=== PATIENT | female | born 1980 | race Hispanic/Latino ===

== ENCOUNTER 2021-03-10 21:26 | Inpatient (IN) | payer OTHER ==
[~2021-03-10] VITALS: Ht 154.9 cm; Wt 105.9 kg
[2021-03-10 21:28] VITALS: BP 113/60
[2021-03-10 21:59] LABS: BASOPHILS % (AUTO) 0.4 % (0.0-5.0); EOSINOPHILS % (AUTO) 0.2 % (0.0-8.0); HEMATOCRIT 42.9 % (36-48); LYMPHOCYTES % (AUTO) 24.5 % (21.0-51.0); MEAN CORPUSCULAR HEMOGLOBIN 25.9 pg (27.0-33.0); MEAN CORPUSCULAR HGB CONC 32.2 g/dL (32.0-36.0); MEAN CORPUSCULAR VOLUME 80.5 fL (79-99); MONOCYTES % (AUTO) 4.2 % (3.0-13.0); NEUTROPHILS % (AUTO) 70.3 % (40.0-77.0); PLATELET COUNT (AUTO) 347 K/uL (130-400); RED BLOOD CELL COUNT(AUTO) 5.33 MIL/uL (4.00-5.50); WHITE BLOOD COUNT (AUTO) 11.9 K/uL (4.8-10.8)
[2021-03-10] MEDS ORDERED: ACETAMINOPHEN 500 MG TABLET PO ONE (22:00)
[2021-03-10] MEDS ORDERED: DEXAMETHASONE SOD PHOSPHATE 4 MG/ML 1ML VIAL IVP STA (22:04)
[2021-03-10 22:14] LABS: ABG BASE EXCESS -3.2 mmol/L (-2.0-3.0); ABG HCO3 20.2 mmol/L (21.0-28.0); ABG OXYGEN SATURATION 90.6 % (95.0-99.0); ABG PCO2 32 mmHg (32-45)
[2021-03-10 22:17] LABS: CREATININE 0.9 mg/dL (0.5-1.5); POTASSIUM 3.5 mmol/L (3.5-5.1)
[2021-03-10] MEDS ORDERED: PROPOFOL 1000 MG/100 ML 100 ML IV ONE (22:19)
[2021-03-10 22:21] LABS: ALBUMIN 2.7 g/dL (3.5-5.0); BILIRUBIN,TOTAL 0.8 mg/dL (0.2-1.0)
[2021-03-10] MEDS ORDERED: ONDANSETRON 4MG INJ ONE (22:22)
[2021-03-10] MEDS ORDERED: 0.9% NACL 250ML IVPB ONE (22:30)
[2021-03-10] MEDS ORDERED: ALBUTEROL INHALER 90MCG/INH IH ONE (22:30)
[2021-03-10] MEDS ORDERED: CEFTRIAXONE 1G VIAL IVP ONE (22:30)
[2021-03-10] MEDS ORDERED: MAGNESIUM 2GM PREMIX 50ML 50 ML IV SCH (22:30)
[2021-03-10] MEDS ORDERED: AZITHROMYCIN 500MG+NS 250ML 250 ML IV ONE (22:30)
[2021-03-10] MEDS ORDERED: LACTATED RINGERS 1000ML 1,000 ML IV ONE ×2 (22:30)
[2021-03-10] MEDS ORDERED: AZITHROMYCIN 500MG VIAL IVPB ONE (22:30)
[2021-03-10] MEDS ORDERED: ENOXAPARIN SODIUM 120 MG/0.8ML SQ ONE (22:32)
[2021-03-10 22:44] LABS: INR 1.02 (0.85-1.15); PROTHROMBIN TIME 11.1 SEC (9.6-11.6)
[2021-03-10 22:46] LABS: PARTIAL THROMBOPLASTIN TIME 30.1 SEC (26.3-35.5)
[2021-03-10 22:47] LABS: MAGNESIUM 1.9 mg/dL (1.80-2.40)
[2021-03-10 23:00] VITALS: BP 200/100
[2021-03-10 23:01] LABS: CRP QUANTITATIVE 205.8 mg/L (0.00-9.0)
[2021-03-10 23:10] VITALS: BP 182/60
[2021-03-10 23:20] VITALS: BP 139/85
[2021-03-10 23:22] LABS: ABG BASE EXCESS -5.5 mmol/L (-2.0-3.0); ABG HCO3 21.9 mmol/L (21.0-28.0); ABG PCO2 50 mmHg (32-45)
[2021-03-10] MEDS ORDERED: NITROGLYCERIN 0.4 MG SL TAB SL PRN (23:30)
[2021-03-10] MEDS ORDERED: 0.9% NACL 250ML IVPB SCH (23:30)
[2021-03-10] MEDS ORDERED: PHARMACY COMMUNICATION MISC SCH (23:30)
[2021-03-10] MEDS ORDERED: ONDANSETRON 4MG INJ IV PRN (23:30)
[2021-03-10] MEDS ORDERED: AZITHROMYCIN 500MG VIAL IVPB SCH (23:30)
[2021-03-10] MEDS ORDERED: ACETAMINOPHEN 325 MG SUPPOSITORY RC PRN ×2 (23:30)
[2021-03-10 23:32] VITALS: BP 128/73
[2021-03-10 23:58] LABS: ABG BASE EXCESS -6.1 mmol/L (-2.0-3.0); ABG HCO3 20.2 mmol/L (21.0-28.0); ABG PCO2 43 mmHg (32-45)
[2021-03-11] VITALS (24 sets, daily range): BP systolic 88–131; BP diastolic 50–90
[2021-03-11] MEDS ORDERED: ALBUTEROL INHALER 90MCG/INH IH PRN
[2021-03-11] MEDS ORDERED: FENTANYL 2500MCG+NS 250ML 250 ML IV ONE (00:38)
[2021-03-11] MEDS ORDERED: PROPOFOL 1000 MG/100 ML 100 ML IV ONE (00:45)
[2021-03-11] MEDS ORDERED: SODIUM BICARB 8.4% 50ML SYRINGE IVP SCH ×2 (01:00)
[2021-03-11] MEDS ORDERED: MIDAZOLAM 100MG-0.9% NS 100ML 100ML BAG IV ONE (01:00)
[2021-03-11] MEDS ORDERED: FENTANYL CITRATE PF 0.05 MG/ML 1,000 MCG in 0.9%NACL 100ML 250 ML IVPB SCH (01:00)
[2021-03-11] MEDS ORDERED: PROPOFOL 1000 MG/100 ML 100 ML IV SCH (01:00)
[2021-03-11] MEDS: SOLU-MEDROL 40MG VIAL IVP SCH ×3 (01:00→23:46)
[2021-03-11] MEDS ORDERED: FENTANYL 1000MCG+NS 100ML 100 ML IV SCH (01:30)
[2021-03-11] MEDS ORDERED: DEXAMETHASONE SOD PHOSPHATE 4 MG/ML 1ML VIAL ONE (01:36)
[2021-03-11] MEDS ORDERED: AZITHROMYCIN 500MG+NS 250ML 250 ML IV ONE (01:37)
[2021-03-11] MEDS ORDERED: CEFTRIAXONE 1G VIAL ONE (01:37)
[2021-03-11] MEDS ORDERED: SODIUM BICARB 50MEQ 50ML VIAL 100 ML ONE (01:39)
[2021-03-11] MEDS ORDERED: SODIUM BICARB 50MEQ 50ML VIAL 50 ML ONE (01:39)
[2021-03-11] MEDS ORDERED: NOREPINEPHRINE 4MG/NS 250ML 250 ML IV ONE (02:32)
[2021-03-11] MEDS ORDERED: NOREPINEPHRINE 4MG/NS 250ML 250 ML IV SCH (03:00)
[2021-03-11 06:59] LABS: ABG BASE EXCESS -0.9 mmol/L (-2.0-3.0); ABG HCO3 21.9 mmol/L (21.0-28.0); ABG OXYGEN SATURATION 97.1 % (95.0-99.0); ABG PCO2 32 mmHg (32-45)
[2021-03-11] MEDS ORDERED: CISATRACURIUM BESYLATE 2 MG/ML 10ML VIAL IV SCH (07:00)
[2021-03-11 07:11] LABS: BASOPHILS % (AUTO) 0.3 % (0.0-5.0); EOSINOPHILS % (AUTO) 0.4 % (0.0-8.0); LYMPHOCYTES % (AUTO) 12.9 % (21.0-51.0); MEAN CORPUSCULAR HEMOGLOBIN 25.7 pg (27.0-33.0); MEAN CORPUSCULAR HGB CONC 31.4 g/dL (32.0-36.0); MEAN CORPUSCULAR VOLUME 81.9 fL (79-99); NEUTROPHILS % (AUTO) 83.7 % (40.0-77.0); PLATELET COUNT (AUTO) 385 K/uL (130-400); RED BLOOD CELL COUNT(AUTO) 5.37 MIL/uL (4.00-5.50); RED CELL DISTRIBUTION WIDTH 17.1 % (11.0-15.5); WHITE BLOOD COUNT (AUTO) 13.6 K/uL (4.8-10.8)
[2021-03-11 07:23] LABS: HEMOGLOBIN A1C 6.4 % (4.0-6.0)
[2021-03-11 07:42] LABS: ALBUMIN 2.6 g/dL (3.5-5.0); BILIRUBIN,TOTAL 1.5 mg/dL (0.2-1.0); CREATININE 0.8 mg/dL (0.5-1.5); POTASSIUM 3.7 mmol/L (3.5-5.1); TOTAL PROTEIN, SERUM 8.2 g/dL (6.0-8.3)
[2021-03-11 08:01] LABS: CRP QUANTITATIVE 267.6 mg/L (0.00-9.0)
[2021-03-11] MEDS: CEFTRIAXONE 1G VIAL IV SCH (08:53)
[2021-03-11] MEDS: ENOXAPARIN SODIUM 40 MG/0.4 ML SYRINGE SQ SCH ×2 (08:53→20:41)
[2021-03-11] MEDS: PANTOPRAZOLE 40 MG/VIAL IVP SCH (08:54)
[2021-03-11] MEDS ORDERED: DEXAMETHASONE SOD PHOSPHATE 4 MG/ML 1ML VIAL IVP SCH (09:00)
[2021-03-11] MEDS ORDERED: FAMOTIDINE 20MG VIAL IV SCH (09:00)
[2021-03-11] MEDS ORDERED: ENOXAPARIN SODIUM 40 MG/0.4 ML SYRINGE SQ SCH (09:00)
[2021-03-11] MEDS ORDERED: PHARMACY COMMUNICATION MISC SCH (10:00)
[2021-03-11] MEDS ORDERED: VANCOMYCIN 2GM/500ML NS IV ONE ×2 (11:00)
[2021-03-11] MEDS ORDERED: VANCOMYCIN PROTOCOL PER PHARMACY IV PRN (11:00)
[2021-03-11] MEDS ORDERED: VANCOMYCIN KIT 250 ML IV ONE (11:25)
[2021-03-11] MEDS: MEROPENEM 1 GM VIAL IVP SCH ×2 (11:38→18:51)
[2021-03-11 11:41] LABS: TROPONIN I 1.39 ng/mL (0.00-0.06)
[2021-03-11] MEDS ORDERED: TOCILIZUMAB 400MG VIAL 800 MG in 0.9%NACL 100ML 100 ML IV ONE (12:00)
[2021-03-11] MEDS ORDERED: PHARMACY COMMUNICATION MISC STA (14:13)
[2021-03-11] MEDS ORDERED: ROCURONIUM BROMIDE 10MG/1ML 5ML VL ONE (14:14)
[2021-03-11] MEDS ORDERED: ROCURONIUM BROMIDE 10MG/1ML 5ML VL IV ONE (14:30)
[2021-03-11] MEDS: CISATRACURIUM BESYLATE 100 MG in 0.9%NACL 100ML 100 ML IV SCH (14:46)
[2021-03-11] MEDS ORDERED: COMPOUND IV REFRIGERATED 1 EACH IVSOLN MISC PRN (15:00)
[2021-03-11] MEDS ORDERED: REMDESIVIR (EUA) 520 200 MG in 0.9% NACL 250ML 250 ML IV ONE (15:00)
[2021-03-11] MEDS: SUCRALFATE 1 GM TABLET NG SCH ×2 (16:01→20:41)
[2021-03-11] MEDS: LACTATED RINGERS 1000ML 1,000 ML IV SCH (17:12)
[2021-03-11 18:14] LABS: BILIRUBIN,URINE Small (NEGATIVE); COLOR,URINE Dark Yellow (YELLOW); GLUCOSE, URINE (UA) Negative (NEGATIVE); KETONES,URINE 40 mg/dL (NEGATIVE); LEUKOCYTE ESTERASE ,URINE Negative (NEGATIVE); NITRATE,URINE Negative (NEGATIVE); OCCULT BLOOD,URINE Negative (NEGATIVE); PH,URINE 5.5 (5.0-8.0); PROTEIN,URINE POS 2+ mg/dL (NEGATIVE)
[2021-03-11 18:18] LABS: APPEARANCE,URINE SLIGHTLY CLOUDY (CLEAR)
[2021-03-11 18:19] LABS: AMPHET/METH SCREEN,URINE NEGATIVE (NEGATIVE); BARBITURATE SCREEN, URINE NEGATIVE (NEGATIVE); BENZODIAZEPINES SCREEN,URINE POSITIVE (NEGATIVE); CANNABINOID SCREEN,URINE NEGATIVE (NEGATIVE); COCAINE SCREEN,URINE NEGATIVE (NEGATIVE); OPIATE SCREEN,URINE NEGATIVE (NEGATIVE); PHENCYCLIDINE SCREEN,URINE NEGATIVE (NEGATIVE)
[2021-03-11 18:26] LABS: WBC,URINE 0-1 /HPF (0-1)
[2021-03-11 18:27] LABS: BACTERIA,URINE Few /HPF (None Seen)
[2021-03-11 18:28] LABS: AMORPHOUS SEDIMENT,UR Few /LPF (None Seen); MUCUS,URINE Few LPF (None Seen); SQUAMOUS EPITHELIAL CELL,UR Few /HPF (0-2)
[2021-03-11 18:29] LABS: HYALINE CASTS, URINE 0-1 /LPF (0-1 /LPF)
[2021-03-11] MEDS ORDERED: 0.9%NACL 50ML 50 ML IV ONE (18:41)
[2021-03-11] MEDS: VANCOMYCIN KIT 1 GM/250 ML IV.KIT IV SCH (20:41)
[2021-03-11] MEDS ORDERED: 0.9% NACL 250ML 250 ML IV SCH ×2 (21:00)
[2021-03-11 23:22] LABS: ABG BASE EXCESS -2.7 mmol/L (-2.0-3.0); ABG HCO3 22.7 mmol/L (21.0-28.0); ABG OXYGEN SATURATION 86.8 % (95.0-99.0); ABG PCO2 42 mmHg (32-45)
[2021-03-11] MEDS: ARTIFICAL TEARS SOL 15 ML OU SCH (23:46)
[2021-03-11] MEDS: AZITHROMYCIN 500MG+NS 250ML IV SCH (23:46)
[2021-03-12] VITALS (65 sets, daily range): BP systolic 97–247; BP diastolic 60–245
[2021-03-12] MEDS ORDERED: CISATRACURIUM BESYLATE 10 MG/ML 20ML VIAL IV ONE (00:26)
[2021-03-12] MEDS: FENTANYL 2500MCG+NS 250ML 250 ML IV SCH ×2 (00:28→16:17)
[2021-03-12] MEDS: CISATRACURIUM BESYLATE 100 MG in 0.9%NACL 100ML 100 ML IV SCH ×5 (00:29→19:49)
[2021-03-12] MEDS: MIDAZOLAM 100MG-0.9% NS 100ML 100ML BAG IV PRN ×2 (00:29→16:16)
[2021-03-12] MEDS ORDERED: 0.9%NACL 100ML 100 ML ONE (03:31)
[2021-03-12] MEDS: SUCRALFATE 1 GM TABLET NG SCH ×4 (03:35→19:48)
[2021-03-12] MEDS: MEROPENEM 1 GM VIAL IVP SCH ×3 (03:35→17:53)
[2021-03-12] MEDS: ARTIFICAL TEARS SOL 15 ML OU SCH ×5 (03:43→19:45)
[2021-03-12 04:41] LABS: BASOPHILS % (AUTO) 0.3 % (0.0-5.0); HEMATOCRIT 35.9 % (36-48); LYMPHOCYTES % (AUTO) 21.9 % (21.0-51.0); MEAN CORPUSCULAR HEMOGLOBIN 25.5 pg (27.0-33.0); MEAN CORPUSCULAR HGB CONC 31.2 g/dL (32.0-36.0); MEAN CORPUSCULAR VOLUME 81.8 fL (79-99); MONOCYTES % (AUTO) 6.1 % (3.0-13.0); NEUTROPHILS % (AUTO) 70.8 % (40.0-77.0); PLATELET COUNT (AUTO) 340 K/uL (130-400); RED BLOOD CELL COUNT(AUTO) 4.39 MIL/uL (4.00-5.50); RED CELL DISTRIBUTION WIDTH 16.9 % (11.0-15.5); WHITE BLOOD COUNT (AUTO) 7.8 K/uL (4.8-10.8)
[2021-03-12 05:01] LABS: ALBUMIN 2.1 g/dL (3.5-5.0); BILIRUBIN,TOTAL 1.1 mg/dL (0.2-1.0); CREATININE 0.6 mg/dL (0.5-1.5); POTASSIUM 3.9 mmol/L (3.5-5.1); TOTAL PROTEIN, SERUM 6.7 g/dL (6.0-8.3)
[2021-03-12 05:27] LABS: CRP QUANTITATIVE 178.1 mg/L (0.00-9.0)
[2021-03-12] MEDS: LACTATED RINGERS 1000ML 1,000 ML IV SCH ×2 (05:44→17:53)
[2021-03-12] MEDS: REMDESIVIR LABS MISC SCH (06:20)
[2021-03-12 06:32] LABS: ABG BASE EXCESS -1.5 mmol/L (-2.0-3.0); ABG HCO3 24.6 mmol/L (21.0-28.0); ABG OXYGEN SATURATION 92.2 % (95.0-99.0); ABG PCO2 47 mmHg (32-45)
[2021-03-12] MEDS ORDERED: 0.9% NACL 250ML 250 ML ONE ×2 (08:09→19:41)
[2021-03-12] MEDS: PANTOPRAZOLE 40 MG/VIAL IVP SCH (08:13)
[2021-03-12] MEDS: CEFTRIAXONE 1G VIAL IV SCH (08:14)
[2021-03-12] MEDS: VANCOMYCIN KIT 1 GM/250 ML IV.KIT IV SCH ×2 (08:14→19:45)
[2021-03-12] MEDS: ENOXAPARIN SODIUM 40 MG/0.4 ML SYRINGE SQ SCH ×2 (08:15→19:47)
[2021-03-12 08:28] LABS: ALBUMIN 2.2 g/dL (3.5-5.0); BILIRUBIN,DIRECT 0.7 mg/dL (0.0-0.3); BILIRUBIN,TOTAL 1.1 mg/dL (0.2-1.0); TOTAL PROTEIN, SERUM 6.2 g/dL (6.0-8.3)
[2021-03-12] MEDS: SOLU-MEDROL 40MG VIAL IVP SCH (13:11)
[2021-03-12] MEDS: REMDESIVIR (EUA) 520 100 MG in 0.9% NACL 250ML 250 ML IV SCH (16:15)
[2021-03-12] MEDS: CHLORHEXIDINE GLUCONATE 473 ML MOUTHWASH MM SCH (19:46)
[2021-03-13] VITALS (55 sets, daily range): BP systolic 98–291; BP diastolic 56–286
[2021-03-13] MEDS: AZITHROMYCIN 500MG+NS 250ML IV SCH ×2 (00:14→23:42)
[2021-03-13] MEDS: SOLU-MEDROL 40MG VIAL IVP SCH ×3 (00:16→23:49)
[2021-03-13] MEDS: ARTIFICAL TEARS SOL 15 ML OU SCH ×7 (00:17→23:52)
[2021-03-13] MEDS: CISATRACURIUM BESYLATE 100 MG in 0.9%NACL 100ML 100 ML IV SCH ×5 (02:16→22:43)
[2021-03-13] MEDS: SUCRALFATE 1 GM TABLET NG SCH ×4 (02:21→21:20)
[2021-03-13] MEDS: MEROPENEM 1 GM VIAL IVP SCH ×2 (02:21→10:49)
[2021-03-13 05:38] LABS: BASOPHILS % (AUTO) 0.1 % (0.0-5.0); HEMATOCRIT 35.5 % (36-48); LYMPHOCYTES % (AUTO) 17.3 % (21.0-51.0); MEAN CORPUSCULAR HEMOGLOBIN 25.3 pg (27.0-33.0); MEAN CORPUSCULAR HGB CONC 30.4 g/dL (32.0-36.0); MEAN CORPUSCULAR VOLUME 83.1 fL (79-99); MONOCYTES % (AUTO) 4.4 % (3.0-13.0); NEUTROPHILS % (AUTO) 77.3 % (40.0-77.0); PLATELET COUNT (AUTO) 449 K/uL (130-400); RED BLOOD CELL COUNT(AUTO) 4.27 MIL/uL (4.00-5.50); RED CELL DISTRIBUTION WIDTH 17.3 % (11.0-15.5); WHITE BLOOD COUNT (AUTO) 7.7 K/uL (4.8-10.8)
[2021-03-13 06:02] LABS: ALBUMIN 1.9 g/dL (3.5-5.0); CREATININE 0.5 mg/dL (0.5-1.5); CRP QUANTITATIVE 60.5 mg/L (0.00-9.0); MAGNESIUM 2.1 mg/dL (1.80-2.40); PHOSPHORUS 2.2 mg/dL (2.5-4.9); POTASSIUM 4.2 mmol/L (3.5-5.1); TOTAL PROTEIN, SERUM 6.2 g/dL (6.0-8.3)
[2021-03-13] MEDS: REMDESIVIR LABS MISC SCH (06:23)
[2021-03-13] MEDS: FENTANYL 2500MCG+NS 250ML 250 ML IV SCH ×2 (06:27→20:48)
[2021-03-13 07:25] LABS: ABG BASE EXCESS 3.9 mmol/L (-2.0-3.0); ABG HCO3 28.3 mmol/L (21.0-28.0); ABG OXYGEN SATURATION 98.5 % (95.0-99.0); ABG PCO2 42 mmHg (32-45)
[2021-03-13] MEDS ORDERED: 0.9% NACL 250ML 250 ML ONE ×2 (08:31→23:24)
[2021-03-13] MEDS: PANTOPRAZOLE 40 MG/VIAL IVP SCH (08:32)
[2021-03-13] MEDS: VANCOMYCIN KIT 1 GM/250 ML IV.KIT IV SCH ×2 (08:32→20:45)
[2021-03-13] MEDS: CEFTRIAXONE 1G VIAL IV SCH (08:32)
[2021-03-13] MEDS: ENOXAPARIN SODIUM 40 MG/0.4 ML SYRINGE SQ SCH ×2 (08:33→20:44)
[2021-03-13] MEDS: CHLORHEXIDINE GLUCONATE 473 ML MOUTHWASH MM SCH ×2 (09:59→21:20)
[2021-03-13] MEDS: REMDESIVIR (EUA) 520 100 MG in 0.9% NACL 250ML 250 ML IV SCH (15:23)
[2021-03-13] MEDS: MIDAZOLAM 100MG-0.9% NS 100ML 100ML BAG IV PRN (17:59)
[2021-03-14] VITALS (63 sets, daily range): BP systolic 109–151; BP diastolic 59–104
[2021-03-14] MEDS: CISATRACURIUM BESYLATE 100 MG in 0.9%NACL 100ML 100 ML IV SCH ×4 (03:12→22:48)
[2021-03-14] MEDS: SUCRALFATE 1 GM TABLET NG SCH ×4 (03:15→20:52)
[2021-03-14] MEDS: ARTIFICAL TEARS SOL 15 ML OU SCH ×5 (03:16→20:51)
[2021-03-14 04:16] LABS: ABG BASE EXCESS 3.1 mmol/L (-2.0-3.0); ABG HCO3 28.5 mmol/L (21.0-28.0); ABG OXYGEN SATURATION 97.9 % (95.0-99.0); ABG PCO2 46 mmHg (32-45)
[2021-03-14 04:38] LABS: BASOPHILS % (AUTO) 0.3 % (0.0-5.0); HEMATOCRIT 35.5 % (36-48); LYMPHOCYTES % (AUTO) 21.3 % (21.0-51.0); MEAN CORPUSCULAR HEMOGLOBIN 25.7 pg (27.0-33.0); MEAN CORPUSCULAR HGB CONC 30.4 g/dL (32.0-36.0); MEAN CORPUSCULAR VOLUME 84.3 fL (79-99); MONOCYTES % (AUTO) 6.1 % (3.0-13.0); NEUTROPHILS % (AUTO) 70.3 % (40.0-77.0); PLATELET COUNT (AUTO) 415 K/uL (130-400); RED BLOOD CELL COUNT(AUTO) 4.21 MIL/uL (4.00-5.50); RED CELL DISTRIBUTION WIDTH 17.2 % (11.0-15.5); WHITE BLOOD COUNT (AUTO) 6.9 K/uL (4.8-10.8)
[2021-03-14 04:51] LABS: BILIRUBIN,TOTAL 0.9 mg/dL (0.2-1.0); CREATININE 0.5 mg/dL (0.5-1.5); CRP QUANTITATIVE 27.2 mg/L (0.00-9.0); POTASSIUM 4.2 mmol/L (3.5-5.1)
[2021-03-14] MEDS: MIDAZOLAM 100MG-0.9% NS 100ML 100ML BAG IV PRN (06:05)
[2021-03-14] MEDS: CEFTRIAXONE 1G VIAL IV SCH (09:18)
[2021-03-14] MEDS: ENOXAPARIN SODIUM 40 MG/0.4 ML SYRINGE SQ SCH ×2 (09:18→20:52)
[2021-03-14] MEDS: PANTOPRAZOLE 40 MG/VIAL IVP SCH (09:18)
[2021-03-14] MEDS: VANCOMYCIN KIT 1 GM/250 ML IV.KIT IV SCH (09:18)
[2021-03-14] MEDS: CHLORHEXIDINE GLUCONATE 473 ML MOUTHWASH MM SCH ×2 (09:19→20:52)
[2021-03-14] MEDS: FENTANYL 2500MCG+NS 250ML 250 ML IV SCH ×2 (09:27→21:42)
[2021-03-14] MEDS: VANCOMYCIN 1.5GM/NS 250ML IV SCH ×4 (11:01→17:36)
[2021-03-14] MEDS ORDERED: [UNRECOGNIZED DRUG - OTHER] MISC STA (11:28)
[2021-03-14] MEDS: SOLU-MEDROL 40MG VIAL IVP SCH (13:33)
[2021-03-14] MEDS: AZITHROMYCIN 500MG+NS 250ML IV SCH (23:53)
[2021-03-15] VITALS (61 sets, daily range): BP systolic 92–152; BP diastolic 62–94
[2021-03-15] MEDS: ARTIFICAL TEARS SOL 15 ML OU SCH ×7 (00:13→23:17)
[2021-03-15] MEDS: SOLU-MEDROL 40MG VIAL IVP SCH ×2 (01:33→12:27)
[2021-03-15] MEDS: VANCOMYCIN 1.5GM/NS 250ML IV SCH ×6 (01:42→18:18)
[2021-03-15] MEDS: SUCRALFATE 1 GM TABLET NG SCH ×4 (02:31→21:33)
[2021-03-15] MEDS: CISATRACURIUM BESYLATE 100 MG in 0.9%NACL 100ML 100 ML IV SCH ×3 (03:38→18:14)
[2021-03-15] MEDS: MIDAZOLAM 100MG-0.9% NS 100ML 100ML BAG IV PRN ×2 (03:38→16:18)
[2021-03-15] MEDS ORDERED: [UNRECOGNIZED DRUG - OTHER] MISC STA (06:50)
[2021-03-15] MEDS: REMDESIVIR LABS MISC SCH ×2 (07:20→09:15)
[2021-03-15 08:03] LABS: HEMATOCRIT 34.7 % (36-48); MEAN CORPUSCULAR HEMOGLOBIN 25.1 pg (27.0-33.0); MEAN CORPUSCULAR HGB CONC 30.3 g/dL (32.0-36.0); PLATELET COUNT (AUTO) 365 K/uL (130-400); RED BLOOD CELL COUNT(AUTO) 4.18 MIL/uL (4.00-5.50); RED CELL DISTRIBUTION WIDTH 16.7 % (11.0-15.5); WHITE BLOOD COUNT (AUTO) 9.5 K/uL (4.8-10.8)
[2021-03-15 08:12] LABS: CREATININE 0.4 mg/dL (0.5-1.5); POTASSIUM 4.4 mmol/L (3.5-5.1)
[2021-03-15 08:30] LABS: BILIRUBIN,DIRECT 0.2 mg/dL (0.0-0.3); BILIRUBIN,TOTAL 0.4 mg/dL (0.2-1.0); TOTAL PROTEIN, SERUM 5.8 g/dL (6.0-8.3)
[2021-03-15 08:33] LABS: LYMPHOCYTES % (MANUAL) 18 % (22-44); MAN.DIFF COMMENT-IMPRESSION MANUAL DIFFERENTIAL; MONOCYTES % (MANUAL) 8 % (2-9); SEGMENTED NEUTROPHILS % 74 % (40-70)
[2021-03-15] MEDS: CEFTRIAXONE 1G VIAL IV SCH (08:38)
[2021-03-15] MEDS: ENOXAPARIN SODIUM 40 MG/0.4 ML SYRINGE SQ SCH ×2 (08:38→21:35)
[2021-03-15] MEDS: PANTOPRAZOLE 40 MG/VIAL IVP SCH (08:38)
[2021-03-15] MEDS: CHLORHEXIDINE GLUCONATE 473 ML MOUTHWASH MM SCH ×2 (08:39→22:51)
[2021-03-15] MEDS: FENTANYL 2500MCG+NS 250ML 250 ML IV SCH (12:29)
[2021-03-15] MEDS: REMDESIVIR (EUA) 520 100 MG in 0.9% NACL 250ML 250 ML IV SCH (16:21)
[2021-03-15] MEDS: AZITHROMYCIN 500MG+NS 250ML IV SCH (23:16)
[2021-03-16] VITALS (36 sets, daily range): BP systolic 102–143; BP diastolic 59–82
[2021-03-16] MEDS: SOLU-MEDROL 40MG VIAL IVP SCH ×2 (00:23→13:01)
[2021-03-16] MEDS: SUCRALFATE 1 GM TABLET NG SCH ×4 (02:46→21:45)
[2021-03-16] MEDS: MIDAZOLAM 100MG-0.9% NS 100ML 100ML BAG IV PRN ×2 (02:47→13:13)
[2021-03-16] MEDS: VANCOMYCIN 1.5GM/NS 250ML IV SCH ×6 (02:47→20:19)
[2021-03-16 05:00] LABS: ABG BASE EXCESS 3.6 mmol/L (-2.0-3.0); ABG HCO3 27.4 mmol/L (21.0-28.0); ABG OXYGEN SATURATION 90.4 % (95.0-99.0); ABG PCO2 39 mmHg (32-45)
[2021-03-16] MEDS: ARTIFICAL TEARS SOL 15 ML OU SCH ×5 (05:02→21:42)
[2021-03-16] MEDS: FENTANYL 2500MCG+NS 250ML 250 ML IV SCH (05:03)
[2021-03-16 06:39] LABS: BASOPHILS % (AUTO) 0.4 % (0.0-5.0); EOSINOPHILS % (AUTO) 0.1 % (0.0-8.0); MEAN CORPUSCULAR HEMOGLOBIN 25.7 pg (27.0-33.0); MEAN CORPUSCULAR HGB CONC 31.4 g/dL (32.0-36.0); MONOCYTES % (AUTO) 6.4 % (3.0-13.0); NEUTROPHILS % (AUTO) 64.6 % (40.0-77.0); PLATELET COUNT (AUTO) 352 K/uL (130-400); RED BLOOD CELL COUNT(AUTO) 4.39 MIL/uL (4.00-5.50); WHITE BLOOD COUNT (AUTO) 11.4 K/uL (4.8-10.8)
[2021-03-16 06:52] LABS: ALANINE AMINOTRANSFERASE 146 U/L (12-78); ALBUMIN 2.2 g/dL (3.5-5.0); ASPARTATE AMINOTRANSFERASE 33 U/L (10-37); BILIRUBIN,DIRECT 0.2 mg/dL (0.0-0.3); BILIRUBIN,TOTAL 0.5 mg/dL (0.2-1.0); TOTAL PROTEIN, SERUM 5.9 g/dL (6.0-8.3)
[2021-03-16 06:57] LABS: CRP QUANTITATIVE < 2.00 mg/L (0.00-9.0)
[2021-03-16] MEDS: ENOXAPARIN SODIUM 40 MG/0.4 ML SYRINGE SQ SCH ×2 (08:40→21:42)
[2021-03-16] MEDS: PANTOPRAZOLE 40 MG/VIAL IVP SCH (08:40)
[2021-03-16] MEDS: CEFTRIAXONE 1G VIAL IV SCH (08:41)
[2021-03-16] MEDS: FUROSEMIDE 20MG VIAL IV SCH ×2 (09:00→21:42)
[2021-03-16] MEDS: CHLORHEXIDINE GLUCONATE 473 ML MOUTHWASH MM SCH ×2 (09:00→21:43)
[2021-03-16] MEDS: REMDESIVIR (EUA) 520 100 MG in 0.9% NACL 250ML 250 ML IV SCH (16:00)
[2021-03-16] MEDS: CISATRACURIUM BESYLATE 100 MG in 0.9%NACL 100ML 100 ML IV SCH (16:01)
[2021-03-16] MEDS ORDERED: FENTANYL 2500MCG+NS 250ML 250 ML IV ONE ×2 (16:42→20:10)
[2021-03-17] VITALS (24 sets, daily range): BP systolic 92–164; BP diastolic 49–104
[2021-03-17] MEDS ORDERED: 0.9% NACL 250ML 250 ML ONE (00:16)
[2021-03-17] MEDS: AZITHROMYCIN 500MG+NS 250ML IV SCH (00:33)
[2021-03-17] MEDS: SOLU-MEDROL 40MG VIAL IVP SCH ×2 (00:33→12:51)
[2021-03-17] MEDS: ARTIFICAL TEARS SOL 15 ML OU SCH ×6 (00:34→20:00)
[2021-03-17] MEDS: MIDAZOLAM 100MG-0.9% NS 100ML 100ML BAG IV PRN ×4 (02:03→23:40)
[2021-03-17] MEDS: SUCRALFATE 1 GM TABLET NG SCH ×4 (02:04→20:52)
[2021-03-17] MEDS ORDERED: 0.9% NACL 500ML IV.SOLN 500 ML IV ONE (03:17)
[2021-03-17] MEDS: VANCOMYCIN 1.5GM/NS 250ML IV SCH ×2 (03:40)
[2021-03-17 04:53] LABS: BASOPHILS % (AUTO) 0.4 % (0.0-5.0); EOSINOPHILS % (AUTO) 0.3 % (0.0-8.0); HEMATOCRIT 36.2 % (36-48); LYMPHOCYTES % (AUTO) 16.7 % (21.0-51.0); MEAN CORPUSCULAR HEMOGLOBIN 25.7 pg (27.0-33.0); MEAN CORPUSCULAR HGB CONC 32.3 g/dL (32.0-36.0); MEAN CORPUSCULAR VOLUME 79.6 fL (79-99); MONOCYTES % (AUTO) 5.5 % (3.0-13.0); NEUTROPHILS % (AUTO) 69.9 % (40.0-77.0); PLATELET COUNT (AUTO) 362 K/uL (130-400); RED BLOOD CELL COUNT(AUTO) 4.55 MIL/uL (4.00-5.50); WHITE BLOOD COUNT (AUTO) 13.5 K/uL (4.8-10.8)
[2021-03-17 05:03] LABS: CREATININE 0.6 mg/dL (0.5-1.5); POTASSIUM 3.9 mmol/L (3.5-5.1)
[2021-03-17 07:16] LABS: ABG BASE EXCESS 4.3 mmol/L (-2.0-3.0); ABG HCO3 25.7 mmol/L (21.0-28.0); ABG OXYGEN SATURATION 92.3 % (95.0-99.0); ABG PCO2 30 mmHg (32-45)
[2021-03-17] MEDS: CEFTRIAXONE 1G VIAL IV SCH (08:12)
[2021-03-17] MEDS: ENOXAPARIN SODIUM 40 MG/0.4 ML SYRINGE SQ SCH ×2 (08:13→20:53)
[2021-03-17] MEDS: CHLORHEXIDINE GLUCONATE 473 ML MOUTHWASH MM SCH ×2 (08:13→20:01)
[2021-03-17] MEDS: PANTOPRAZOLE 40 MG/VIAL IVP SCH (08:14)
[2021-03-17] MEDS ORDERED: FENTANYL 2500MCG+NS 250ML 0 ML IV ONE (11:36)
[2021-03-17] MEDS ORDERED: COMPOUND IV REFRIGERATED 1 EACH IVSOLN MISC PRN (12:00)
[2021-03-17] MEDS ORDERED: FENTANYL 2500MCG+NS 250ML 250 ML IV ONE (19:13)
[2021-03-17] MEDS ORDERED: VANCOMYCIN 1G 1.25 GM in 0.9% NACL 250ML 250 ML IV SCH (22:00)
[2021-03-18] VITALS (29 sets, daily range): BP systolic 90–172; BP diastolic 45–87
[2021-03-18] MEDS: AZITHROMYCIN 500MG+NS 250ML IV SCH (00:20)
[2021-03-18] MEDS: SOLU-MEDROL 40MG VIAL IVP SCH ×2 (00:21→12:35)
[2021-03-18] MEDS: ARTIFICAL TEARS SOL 15 ML OU SCH ×6 (00:21→20:23)
[2021-03-18] MEDS: SUCRALFATE 1 GM TABLET NG SCH ×4 (04:24→20:23)
[2021-03-18 04:41] LABS: ABG BASE EXCESS 2.9 mmol/L (-2.0-3.0); ABG HCO3 24.6 mmol/L (21.0-28.0); ABG OXYGEN SATURATION 95.2 % (95.0-99.0); ABG PCO2 30 mmHg (32-45)
[2021-03-18] MEDS: CEFTRIAXONE 1G VIAL IV SCH (08:22)
[2021-03-18] MEDS: PANTOPRAZOLE 40 MG/VIAL IVP SCH (08:23)
[2021-03-18] MEDS: CHLORHEXIDINE GLUCONATE 473 ML MOUTHWASH MM SCH ×2 (08:24→20:23)
[2021-03-18] MEDS: ENOXAPARIN SODIUM 40 MG/0.4 ML SYRINGE SQ SCH ×2 (08:44→20:23)
[2021-03-18] MEDS: LACTULOSE 20 GM/30 ML UDCUP PO SCH ×2 (08:52→09:00)
[2021-03-18] MEDS ORDERED: FENTANYL 2500MCG+NS 250ML 250 ML IV ONE ×2 (09:06→20:12)
[2021-03-18] MEDS ORDERED: PROPOFOL 1000 MG/100 ML 100 ML IV ONE ×3 (09:16→20:15)
[2021-03-18] MEDS ORDERED: VANCOMYCIN 2GM/500ML NS IV SCH ×2 (10:00)
[2021-03-18] MEDS ORDERED: VANCOMYCIN 2GM/500ML NS IV ONE ×2 (14:00)
[2021-03-18] MEDS: MIDAZOLAM 100MG-0.9% NS 100ML 100ML BAG IV PRN ×2 (14:01→20:25)
[2021-03-18] MEDS: VANCOMYCIN 1.5GM/NS 250ML IV SCH ×2 (17:48)
[2021-03-18] MEDS ORDERED: VANCOMYCIN 1.5GM/NS 250ML IV SCH ×2 (22:00)
[2021-03-18] MEDS ORDERED: FENTANYL CITRATE PF 0.05 MG/ML 1,000 MCG in 0.9%NACL 100ML 100 ML IVPB SCH (23:00)
[2021-03-19] VITALS (32 sets, daily range): BP systolic 89–145; BP diastolic 43–83
[2021-03-19] MEDS: ARTIFICAL TEARS SOL 15 ML OU SCH ×6 (01:07→20:53)
[2021-03-19] MEDS: VANCOMYCIN 1.5GM/NS 250ML IV SCH ×4 (01:08→09:56)
[2021-03-19] MEDS: SOLU-MEDROL 40MG VIAL IVP SCH ×2 (01:08→12:01)
[2021-03-19] MEDS: SUCRALFATE 1 GM TABLET NG SCH ×4 (02:34→20:53)
[2021-03-19] MEDS ORDERED: PROPOFOL 1000 MG/100 ML 100 ML IV ONE (02:57)
[2021-03-19 04:50] LABS: ALANINE AMINOTRANSFERASE 77 U/L (12-78); ALBUMIN 2.3 g/dL (3.5-5.0); ASPARTATE AMINOTRANSFERASE 23 U/L (10-37); BILIRUBIN,TOTAL 0.4 mg/dL (0.2-1.0); CARBON DIOXIDE 28 mmol/L (21-32); CHLORIDE 108 mmol/L (101-111); CREATININE 0.5 mg/dL (0.5-1.5); GLOMERULAR FILTR. RATE CALC 146 mL/min (>60); GLUCOSE,RANDOM 132 mg/dL (70-105); LACTATE DEHYDROGENASE 304 U/L (81-234); POTASSIUM 4.1 mmol/L (3.5-5.1); SODIUM SERUM 142 mmol/L (136-145); TOTAL PROTEIN, SERUM 5.4 g/dL (6.0-8.3); UREA NITROGEN, BLOOD 18 mg/dL (7-18)
[2021-03-19 05:13] LABS: ABG BASE EXCESS 2.4 mmol/L (-2.0-3.0); ABG HCO3 27.2 mmol/L (21.0-28.0); ABG OXYGEN SATURATION 87.5 % (95.0-99.0); ABG PCO2 43 mmHg (32-45)
[2021-03-19 05:31] LABS: BASOPHILS % (AUTO) 0.3 % (0.0-5.0); HEMATOCRIT 34.9 % (36-48); LYMPHOCYTES % (AUTO) 12.4 % (21.0-51.0); MEAN CORPUSCULAR HEMOGLOBIN 26.7 pg (27.0-33.0); MEAN CORPUSCULAR HGB CONC 32.1 g/dL (32.0-36.0); MEAN CORPUSCULAR VOLUME 83.1 fL (79-99); MONOCYTES % (AUTO) 6.6 % (3.0-13.0); NEUTROPHILS % (AUTO) 75.6 % (40.0-77.0); NUCLEATED RED BLOOD CELLS 0.1 % (0.0-0.19); PLATELET COUNT (AUTO) 278 K/uL (130-400); RED CELL DISTRIBUTION WIDTH 17.5 % (11.0-15.5); WHITE BLOOD COUNT (AUTO) 14.6 K/uL (4.8-10.8)
[2021-03-19 05:47] LABS: CRP QUANTITATIVE < 2.00 mg/L (0.00-9.0)
[2021-03-19] MEDS ORDERED: PROPOFOL 1000 MG/100 ML IV PRN (08:40)
[2021-03-19] MEDS: LACTULOSE 20 GM/30 ML UDCUP PO SCH (09:00)
[2021-03-19] MEDS: CEFTRIAXONE 1G VIAL IV SCH (09:03)
[2021-03-19] MEDS: PANTOPRAZOLE 40 MG/VIAL IVP SCH (09:03)
[2021-03-19] MEDS: ENOXAPARIN SODIUM 40 MG/0.4 ML SYRINGE SQ SCH ×2 (09:04→20:58)
[2021-03-19] MEDS: CHLORHEXIDINE GLUCONATE 473 ML MOUTHWASH MM SCH ×2 (09:40→20:58)
[2021-03-19] MEDS ORDERED: FENTANYL 2500MCG+NS 250ML 250 ML IV ONE ×2 (09:44→20:50)
[2021-03-19] MEDS: PROPOFOL 1000 MG/100 ML 100 ML IV PRN ×3 (11:59→20:57)
[2021-03-19] MEDS: MIDAZOLAM 100MG-0.9% NS 100ML 100ML BAG IV PRN ×2 (12:01→20:55)
[2021-03-19] MEDS ORDERED: NOREPINEPHRINE 4MG/NS 250ML 250 ML IV SCH (19:30)
[2021-03-19] MEDS ORDERED: ROCURONIUM BROMIDE 100 MG in 0.9%NACL 100ML 100 ML IV SCH (19:30)
[2021-03-19] MEDS ORDERED: VANCOMYCIN 1.5GM/NS 250ML IV SCH ×2 (21:00)
[2021-03-19] MEDS ORDERED: QUETIAPINE FUMARATE 25 MG TAB PO SCH (21:00)
[2021-03-19] MEDS ORDERED: ACETAMINOPHEN 325 MG TAB ONE (21:20)
[2021-03-19 23:01] LABS: ABG OXYGEN SATURATION 66.6 % (95.0-99.0)
[2021-03-19] MEDS ORDERED: SODIUM BICARB 50MEQ 50ML VIAL 50 ML ONE (23:04)
[2021-03-19] MEDS ORDERED: SODIUM BICARB 50MEQ 50ML VIAL 150 ML ONE (23:10)
[2021-03-19 23:41] LABS: CREATININE 1.3 mg/dL (0.5-1.5); HEMATOCRIT 40.9 % (36-48); MEAN CORPUSCULAR HEMOGLOBIN 26.7 pg (27.0-33.0); MEAN CORPUSCULAR HGB CONC 29.3 g/dL (32.0-36.0); MEAN CORPUSCULAR VOLUME 91.1 fL (79-99); NUCLEATED RED BLOOD CELLS 0.4 % (0.0-0.19); PLATELET COUNT (AUTO) 298 K/uL (130-400); POTASSIUM 5.8 mmol/L (3.5-5.1); RED BLOOD CELL COUNT(AUTO) 4.49 MIL/uL (4.00-5.50)
[2021-03-19 23:42] LABS: TROPONIN I 0.58 ng/mL (0.00-0.06)
[2021-03-20 00:15] LABS: BAND NEUTROPHILS % (MANUAL) 13 % (0-2); LYMPHOCYTES % (MANUAL) 23 % (22-44); MAN.DIFF COMMENT-IMPRESSION MANUAL DIFFERENTIAL; METAMYELOCYTES % 3 % (0-0); MONOCYTES % (MANUAL) 6 % (2-9); SEGMENTED NEUTROPHILS % 55 % (40-70)
[2021-03-20 00:17] LABS: PLATELET MORPHOLOGY COMMENT ADEQUATE
== END 2021-03-19 23:35 | DRG 207 ==
LOC: EDH 21:26 → EDHIP 21:27 → 2BH 03-11 22:22
PROVIDERS: ADMIT Internal Medicine; ATTEND Internal Medicine
PROC: 5A1955Z Respiratory Ventilation, Greater than 96 Consecutive Hours (ICD-10-PCS; principal; 2021-03-10)
PROC: 0BH17EZ Insertion of Endotracheal Airway into Trachea, Via Natural or Artificial Opening (ICD-10-PCS; 2021-03-10)
PROC: XW033E5 Introduction of Remdesivir Anti-infective into Peripheral Vein, Percutaneous Approach, New Technology Group 5 (ICD-10-PCS; 2021-03-11)
PROC: XW033H5 Introduction of Tocilizumab into Peripheral Vein, Percutaneous Approach, New Technology Group 5 (ICD-10-PCS; 2021-03-11)
PROC: 5A12012 Performance of Cardiac Output, Single, Manual (ICD-10-PCS; 2021-03-19)
DX: U07.1 COVID-19 (principal); A41.89 Other specified sepsis; R65.21 Severe sepsis with septic shock; J12.82 Pneumonia due to coronavirus disease 2019; J80 Acute respiratory distress syndrome; J15.212 Pneumonia due to Methicillin resistant Staphylococcus aureus; E66.2 Morbid (severe) obesity with alveolar hypoventilation; E87.2 Acidosis; D68.59 Other primary thrombophilia; E87.1 Hypo-osmolality and hyponatremia; E87.0 Hyperosmolality and hypernatremia; Z68.41 Body mass index [BMI] 40.0-44.9, adult; E87.8 Other disorders of electrolyte and fluid balance, not elsewhere classified; I10 Essential (primary) hypertension; R53.81 Other malaise; I46.9 Cardiac arrest, cause unspecified
CPT/HCPCS: 31500; 36415; 36600; 71045; 80048; 80053; 80076; 80202; 80305; 81001; 82248; 82435; 82550; 82728; 82803; 82947; 82948; 83036; 83605; 83615; 83735; 83874; 83880; 84100; 84132; 84145; 84295; 84484; 85018; 85025; 85027; 85378; 85610; 85730; 86140; 87040; 87071; 87077; 87088; 87186; 87205; 87426; 87449; 87635; 87637; 87804; 87880; 92950; 93005; 93970; 94002; 94003; 99291; C9113; G0378; J0456; J0696; J1100; J1650; J1940; J2185; J2405; J2704; J2920; J3010; J3370; J3475; J3490; J7040; J7050; J7120